=== PATIENT | male | born 1955 | race Caucasian/White ===

== ENCOUNTER 2022-11-28 07:39 | Outpatient (CLI) | payer MEDICARE, OTHER ==
[2022-11-28 08:56] LABS: Hemoglobin 15.2 g/dL (13.5-17.5)
[2022-11-28 09:11] LABS: Anion Gap 17 mmol/L (10-20); BUN (Urea Nitrogen) 9 mg/dL (8.4-25.7); Calc. Creatinine Clearance 0 mL/min (70-130); Calcium 9.5 mg/dL (7.8-10.44); Carbon Dioxide 23 mmol/L (23-31); Chloride 104 mmol/L (98-107); Estimated GFR 83; Glucose 104 mg/dL (80-115); Potassium 4.3 mmol/L (3.5-5.1); Sodium 140 mmol/L (136-145)
== END 2022-11-28 07:40 | disposition home or self-care (01) ==
LOC: CSHLAB 07:39
PROVIDERS: ATTEND Otolaryngology Plastic Surgery within the Head & Neck
DX: Z01.818 Encounter for other preprocedural examination (principal); R22.1 Localized swelling, mass and lump, neck; J34.89 Other specified disorders of nose and nasal sinuses; E03.9 Hypothyroidism, unspecified
CPT/HCPCS: 80048; 85014; 85018; 93005; 93010

== ENCOUNTER 2022-12-02 07:08 | Day surgery (SDC) | payer MEDICARE, OTHER ==
[2022-11-28 08:20] VITALS: BMI 25.2
[2022-12-02] MEDS ORDERED: fentaNYL 50 mcg/mL 1 mL Vial ONE (10:51)
[2022-12-02] MEDS ORDERED: Ondansetron PF 4 MG/2 ML Vial ONE (10:51)
[2022-12-02] MEDS ORDERED: Dexamethasone 20 MG/5 ML VIAL ONE (10:51)
[2022-12-02] MEDS ORDERED: Midazolam HCl 2 mg/2 ml Vial ONE (10:51)
[2022-12-02] MEDS ORDERED: PROPOFOL 20 ML ONE (10:51)
[2022-12-02] MEDS ORDERED: Lidocaine 1% PF 5 ML VIAL ONE (10:52)
[2022-12-02] MEDS ORDERED: Rocuronium Bromide 10 MG/ML (10ML VIAL) ONE (10:52)
[2022-12-02] MEDS ORDERED: EPINEPHrine 1 MG/ML AMP ONE ×2 (12:05→12:09)
[2022-12-02] MEDS ORDERED: Glycopyrrolate 0.2 MG/ML 5 ML SYRINGE ONE (12:33)
== END 2022-12-02 14:20 | disposition home or self-care (01) ==
LOC: CSHSDC 07:08
PROVIDERS: ATTEND Otolaryngology Plastic Surgery within the Head & Neck
PROC: 0CBS8ZX Excision of Larynx, Via Natural or Artificial Opening Endoscopic, Diagnostic (ICD-10-PCS; principal; 2022-12-02)
DX: C14.0 Malignant neoplasm of pharynx, unspecified (principal); J34.89 Other specified disorders of nose and nasal sinuses; E03.9 Hypothyroidism, unspecified; F17.210 Nicotine dependence, cigarettes, uncomplicated
CPT/HCPCS: 31536; J3010; 88305; 88331; J0171; J1100; J2250; J2405; J2704